=== PATIENT | male | born 1980 | race Caucasian/White ===

== ENCOUNTER 2018-09-08 21:33 | Inpatient (IN) | payer OTHER ==
[2018-09-08] MEDS: IBUPROFEN 600 MG TAB PO (22:51)
[2018-09-08] MEDS: LORAZEPAM 2 MG INJ IV (22:51)
[2018-09-09] MEDS ORDERED: NACL 0.9% 3 ML SYG IV (01:00)
[2018-09-09] MEDS ORDERED: ALBUTEROL/IPRATROPIUM (NEB) 3 ML AMP HHN (01:00)
[2018-09-09] MEDS ORDERED: LORAZEPAM 2 MG INJ IV (01:00)
[2018-09-09] MEDS: SOD CHLORIDE 0.9% 1,000 ML IV ×3 (02:00→23:26)
[2018-09-09] MEDS: LORAZEPAM 2 MG INJ IV ×7 (03:19→22:40)
[2018-09-09 07:02] LABS: ADD MAN DIFF? NO
[2018-09-09 07:09] LABS: WHITE BLOOD COUNT 4.5 10^3/ul (4.8-10.8)
[2018-09-09 07:09] LABS: ABNORMAL IP MESSAGE 1; BASOPHILS % 0.9 % (0.0-2.0); EOSINOPHILS # 0.1 10^3/ul (0.0-0.5); HEMATOCRIT 30.4 % (42.0-52.0); HEMOGLOBIN 10.6 g/dl (14.0-18.0); LYMPHOCYTES # 1.6 10^3/ul (0.8-2.9); LYMPHOCYTES % 34.1 % (15.0-51.0); MEAN CORPUSCULAR HEMOGLOBIN 34.8 pg (29.0-33.0); MEAN CORPUSCULAR HGB CONC 34.9 g/dl (32.0-37.0); MEAN CORPUSCULAR VOLUME 99.7 fl (82.0-101.0); MEAN PLATELET VOLUME 10.4 fl (7.4-10.4); MONOCYTE # 0.5 10^3/ul (0.3-0.9); MONOCYTES % 11.9 % (0.0-11.0); NEUTROPHIL # 2.3 10^3/ul (1.6-7.5); NEUTROPHILS % 50.7 % (39.0-77.0); PLATELET COUNT 53 10^3/UL (140-415); POSITIVE DIFF @See below; RED BLOOD COUNT 3.05 10^6/ul (4.70-6.10); RED CELL DISTRIBUTION WIDTH 14.5 % (11.5-14.5)
[2018-09-09 07:27] LABS: ALANINE AMINOTRANSFERASE 72 IU/L (13-69); ALBUMIN 3.5 g/dl (3.3-4.9); ALBUMIN/GLOBULIN RATIO 1.16; ALKALINE PHOSPHATASE 69 IU/L (42-121); ANION GAP 11 (5-13); ASPARTATE AMINO TRANSFERASE 132 IU/L (15-46); BILIRUBIN,INDIRECT 0.8 mg/dl (0-1.1); BILIRUBIN,TOTAL 0.8 mg/dl (0.2-1.3); BLOOD UREA NITROGEN 14 mg/dl (7-20); CALCIUM 8.9 mg/dl (8.4-10.2); CARBON DIOXIDE 27 mmol/L (21-31); CHLORIDE 100 mmol/L (97-110); CHOL/HDL RATIO 1.9 RATIO; CHOLESTEROL 190 mg/dl (100-200); CREATININE 0.52 mg/dl (0.61-1.24); Estimated GFR > 60 mL/min (>60); GLUCOSE 101 mg/dl (70-220); HDL CHOLESTEROL 97 mg/dl (27-67); LDL CHOLESTEROL,CALCULATED 85 mg/dl; POTASSIUM 3.8 mmol/L (3.5-5.1); SODIUM 138 mmol/L (135-144); TOTAL PROTEIN 6.5 g/dl (6.1-8.1); TRIGLYCERIDES 42 mg/dl (0-149)
[2018-09-09] MEDS: MULTIVITAMINS 10 ML, THIAMINE 100 MG, FOLIC ACID 1 MG in SOD CHLORIDE 0.9% 1,000 ML IVPB (08:55)
[2018-09-09] MEDS: CHLORDIAZEPOXIDE 25 MG CAP PO ×3 (08:55→20:32)
[2018-09-09] MEDS: ENOXAPARIN 40 MG/0.4 ML SYG SC (08:56)
[2018-09-09] MEDS: ACETAMINOPHEN 325 MG TAB PO (20:31)
[2018-09-09] MEDS ORDERED: traMADol 50 MG TAB PO (21:30)
[2018-09-10] MEDS: LORAZEPAM 2 MG INJ IV ×5 (01:45→22:37)
[2018-09-10 06:22] LABS: ADD MAN DIFF? NO
[2018-09-10 06:28] LABS: ABNORMAL IP MESSAGE 1; BASOPHILS % 0.6 % (0.0-2.0); EOSINOPHILS # 0.2 10^3/ul (0.0-0.5); EOSINOPHILS % 4.7 % (0.0-7.0); HEMATOCRIT 33.3 % (42.0-52.0); HEMOGLOBIN 11.5 g/dl (14.0-18.0); LYMPHOCYTES # 1.2 10^3/ul (0.8-2.9); LYMPHOCYTES % 36.5 % (15.0-51.0); MEAN CORPUSCULAR HEMOGLOBIN 34.8 pg (29.0-33.0); MEAN CORPUSCULAR HGB CONC 34.5 g/dl (32.0-37.0); MEAN CORPUSCULAR VOLUME 100.9 fl (82.0-101.0); MEAN PLATELET VOLUME 10.8 fl (7.4-10.4); MONOCYTE # 0.4 10^3/ul (0.3-0.9); MONOCYTES % 10.9 % (0.0-11.0); NEUTROPHIL # 1.6 10^3/ul (1.6-7.5); PLATELET COUNT 45 10^3/UL (140-415); POSITIVE DIFF @See below; RED CELL DISTRIBUTION WIDTH 13.6 % (11.5-14.5)
[2018-09-10 06:28] LABS: WHITE BLOOD COUNT 3.4 10^3/ul (4.8-10.8)
[2018-09-10 06:55] LABS: ANION GAP 7 (5-13); BLOOD UREA NITROGEN 9 mg/dl (7-20); CARBON DIOXIDE 29 mmol/L (21-31); CHLORIDE 105 mmol/L (97-110); CREATININE 0.56 mg/dl (0.61-1.24); Estimated GFR > 60 mL/min (>60); GLUCOSE 104 mg/dl (70-220); MAGNESIUM 1.4 mg/dl (1.7-2.5); PHOSPHORUS 4.6 mg/dl (2.5-4.9); POTASSIUM 4.3 mmol/L (3.5-5.1); SODIUM 141 mmol/L (135-144)
[2018-09-10] MEDS: CHLORDIAZEPOXIDE 25 MG CAP PO ×3 (09:06→20:42)
[2018-09-10] MEDS: MULTIVITAMINS 10 ML, THIAMINE 100 MG, FOLIC ACID 1 MG in SOD CHLORIDE 0.9% 1,000 ML IVPB (09:06)
[2018-09-10] MEDS: ENOXAPARIN 40 MG/0.4 ML SYG SC (09:10)
[2018-09-10] MEDS: MAGNESIUM SULFATE 2 GM/50 ML 50 ML IVPB (15:59)
[2018-09-10] MEDS: SOD CHLORIDE 0.9% 1,000 ML IV ×2 (19:26→22:46)
[2018-09-11] MEDS: LORAZEPAM 2 MG INJ IV ×4 (01:37→15:13)
[2018-09-11 06:43] LABS: WHITE BLOOD COUNT 3.7 10^3/ul (4.8-10.8)
[2018-09-11 06:43] LABS: ABNORMAL IP MESSAGE 1; BASOPHILS % 0.8 % (0.0-2.0); EOSINOPHILS # 0.2 10^3/ul (0.0-0.5); EOSINOPHILS % 5.3 % (0.0-7.0); HEMATOCRIT 31.6 % (42.0-52.0); HEMOGLOBIN 10.6 g/dl (14.0-18.0); LYMPHOCYTES # 1.5 10^3/ul (0.8-2.9); LYMPHOCYTES % 39.6 % (15.0-51.0); MEAN CORPUSCULAR HEMOGLOBIN 34.8 pg (29.0-33.0); MEAN CORPUSCULAR HGB CONC 33.5 g/dl (32.0-37.0); MEAN CORPUSCULAR VOLUME 103.6 fl (82.0-101.0); MEAN PLATELET VOLUME 11.4 fl (7.4-10.4); MONOCYTE # 0.5 10^3/ul (0.3-0.9); MONOCYTES % 12.8 % (0.0-11.0); NEUTROPHIL # 1.5 10^3/ul (1.6-7.5); PLATELET COUNT 48 10^3/UL (140-415); POSITIVE DIFF @See below; RED BLOOD COUNT 3.05 10^6/ul (4.70-6.10); RED CELL DISTRIBUTION WIDTH 13.7 % (11.5-14.5)
[2018-09-11 06:44] LABS: ADD MAN DIFF? NO
[2018-09-11 06:56] LABS: MAGNESIUM 1.7 mg/dl (1.7-2.5)
[2018-09-11 07:07] LABS: ALANINE AMINOTRANSFERASE 61 IU/L (13-69); ALBUMIN 3.3 g/dl (3.3-4.9); ALBUMIN/GLOBULIN RATIO 1.17; ALKALINE PHOSPHATASE 72 IU/L (42-121); ANION GAP 7 (5-13); ASPARTATE AMINO TRANSFERASE 81 IU/L (15-46); BILIRUBIN,INDIRECT 0.5 mg/dl (0-1.1); BILIRUBIN,TOTAL 0.5 mg/dl (0.2-1.3); BLOOD UREA NITROGEN 11 mg/dl (7-20); CALCIUM 8.6 mg/dl (8.4-10.2); CARBON DIOXIDE 25 mmol/L (21-31); CHLORIDE 111 mmol/L (97-110); CREATININE 0.47 mg/dl (0.61-1.24); Estimated GFR > 60 mL/min (>60); GLUCOSE 95 mg/dl (70-220); POTASSIUM 3.5 mmol/L (3.5-5.1); SODIUM 143 mmol/L (135-144); TOTAL PROTEIN 6.1 g/dl (6.1-8.1)
[2018-09-11] MEDS: CHLORDIAZEPOXIDE 25 MG CAP PO ×3 (08:15→21:00)
[2018-09-11] MEDS: ENOXAPARIN 40 MG/0.4 ML SYG SC (08:18)
[2018-09-11] MEDS: MULTIVITAMINS 10 ML, THIAMINE 100 MG, FOLIC ACID 1 MG in SOD CHLORIDE 0.9% 1,000 ML IVPB (08:19)
[2018-09-11] MEDS ORDERED: CHLORDIAZEPOXIDE 25 MG CAP PO (21:00)
[2018-09-11] MEDS: SOD CHLORIDE 0.9% 1,000 ML IV (21:00)
[2018-09-12 06:19] LABS: ANION GAP 5 (5-13); BLOOD UREA NITROGEN 14 mg/dl (7-20); CALCIUM 8.6 mg/dl (8.4-10.2); CARBON DIOXIDE 26 mmol/L (21-31); CHLORIDE 108 mmol/L (97-110); CREATININE 0.51 mg/dl (0.61-1.24); Estimated GFR > 60 mL/min (>60); GLUCOSE 101 mg/dl (70-220); POTASSIUM 3.7 mmol/L (3.5-5.1); SODIUM 139 mmol/L (135-144)
[2018-09-12] MEDS: CHLORDIAZEPOXIDE 25 MG CAP PO ×2 (08:31→13:37)
[2018-09-12] MEDS: ENOXAPARIN 40 MG/0.4 ML SYG SC (08:35)
[2018-09-12] MEDS: SOD CHLORIDE 0.9% 1,000 ML IV (11:26)
[2018-09-12] MEDS: MULTIVITAMINS 10 ML, THIAMINE 100 MG, FOLIC ACID 1 MG in SOD CHLORIDE 0.9% 1,000 ML IVPB (11:35)
== END 2018-09-12 14:30 | disposition home or self-care (01) | DRG 897 ==
LOC: 2NE 09-11 14:56 → TEL 21:33
DX: F10.239 Alcohol dependence with withdrawal, unspecified (principal); F10.229 Alcohol dependence with intoxication, unspecified; I48.91 Unspecified atrial fibrillation; D64.9 Anemia, unspecified; E83.42 Hypomagnesemia
CPT/HCPCS: 80048; 80053; 80061; 83735; 84100; 84443; 85025; 97116; 97161

== ENCOUNTER 2018-09-19 16:31 | Inpatient (IN) | payer OTHER ==
[2018-09-19] MEDS ORDERED: NACL 0.9% 3 ML SYG IV (17:30)
[2018-09-19 18:04] LABS: ADD MAN DIFF? NO
[2018-09-19 18:06] LABS: BASOPHIL # 0.1 10^3/ul (0.0-0.1); BASOPHILS % 2.7 % (0.0-2.0); EOSINOPHILS # 0.1 10^3/ul (0.0-0.5); LYMPHOCYTES # 1.4 10^3/ul (0.8-2.9); LYMPHOCYTES % 31.2 % (15.0-51.0); MEAN CORPUSCULAR HEMOGLOBIN 34.9 pg (29.0-33.0); MEAN CORPUSCULAR HGB CONC 33.3 g/dl (32.0-37.0); MEAN CORPUSCULAR VOLUME 104.8 fl (82.0-101.0); MONOCYTE # 0.8 10^3/ul (0.3-0.9); MONOCYTES % 18.2 % (0.0-11.0); NEUTROPHILS % 45.2 % (39.0-77.0); PLATELET COUNT 355 10^3/UL (140-415); RED BLOOD COUNT 3.15 10^6/ul (4.70-6.10); RED CELL DISTRIBUTION WIDTH 14.5 % (11.5-14.5)
[2018-09-19 18:06] LABS: WHITE BLOOD COUNT 4.5 10^3/ul (4.8-10.8)
[2018-09-19] MEDS: CHLORDIAZEPOXIDE 25 MG CAP PO (18:08)
[2018-09-19 18:36] LABS: ALANINE AMINOTRANSFERASE 62 IU/L (13-69); ALBUMIN 3.8 g/dl (3.3-4.9); ALBUMIN/GLOBULIN RATIO 1.31; ALKALINE PHOSPHATASE 65 IU/L (42-121); ANION GAP 7 (5-13); ASPARTATE AMINO TRANSFERASE 60 IU/L (15-46); BILIRUBIN,INDIRECT 0.4 mg/dl (0-1.1); BILIRUBIN,TOTAL 0.4 mg/dl (0.2-1.3); BLOOD UREA NITROGEN 8 mg/dl (7-20); CALCIUM 8.8 mg/dl (8.4-10.2); CARBON DIOXIDE 26 mmol/L (21-31); CHLORIDE 108 mmol/L (97-110); CREATININE 0.56 mg/dl (0.61-1.24); Estimated GFR > 60 mL/min (>60); GLUCOSE 100 mg/dl (70-220); POTASSIUM 4.1 mmol/L (3.5-5.1); SODIUM 141 mmol/L (135-144); TOTAL PROTEIN 6.7 g/dl (6.1-8.1)
[2018-09-19] MEDS: DIAZEPAM 5 MG/ML SYG IV (19:48)
[2018-09-20] MEDS: CHLORDIAZEPOXIDE 25 MG CAP PO ×6 (02:02→23:04)
[2018-09-20 08:27] LABS: ADD MAN DIFF? NO
[2018-09-20 08:28] LABS: WHITE BLOOD COUNT 4.8 10^3/ul (4.8-10.8)
[2018-09-20 08:28] LABS: BASOPHIL # 0.1 10^3/ul (0.0-0.1); BASOPHILS % 2.3 % (0.0-2.0); EOSINOPHILS # 0.1 10^3/ul (0.0-0.5); EOSINOPHILS % 2.7 % (0.0-7.0); HEMATOCRIT 35.3 % (42.0-52.0); HEMOGLOBIN 11.5 g/dl (14.0-18.0); LYMPHOCYTES # 1.5 10^3/ul (0.8-2.9); LYMPHOCYTES % 32.2 % (15.0-51.0); MEAN CORPUSCULAR HEMOGLOBIN 34.6 pg (29.0-33.0); MEAN CORPUSCULAR HGB CONC 32.6 g/dl (32.0-37.0); MEAN CORPUSCULAR VOLUME 106.3 fl (82.0-101.0); MEAN PLATELET VOLUME 9.2 fl (7.4-10.4); MONOCYTE # 0.8 10^3/ul (0.3-0.9); MONOCYTES % 16.6 % (0.0-11.0); NEUTROPHIL # 2.2 10^3/ul (1.6-7.5); NEUTROPHILS % 45.6 % (39.0-77.0); PLATELET COUNT 350 10^3/UL (140-415); RED BLOOD COUNT 3.32 10^6/ul (4.70-6.10); RED CELL DISTRIBUTION WIDTH 14.3 % (11.5-14.5)
[2018-09-20 08:47] LABS: HEMOGLOBIN A1C 4.9 % (0-5.9)
[2018-09-20 08:49] LABS: ALANINE AMINOTRANSFERASE 52 IU/L (13-69); ALKALINE PHOSPHATASE 54 IU/L (42-121); ANION GAP 8 (5-13); ASPARTATE AMINO TRANSFERASE 46 IU/L (15-46); BILIRUBIN,INDIRECT 0.7 mg/dl (0-1.1); BILIRUBIN,TOTAL 0.7 mg/dl (0.2-1.3); BLOOD UREA NITROGEN 12 mg/dl (7-20); CARBON DIOXIDE 30 mmol/L (21-31); CHLORIDE 106 mmol/L (97-110); CREATININE 0.57 mg/dl (0.61-1.24); Estimated GFR > 60 mL/min (>60); GLUCOSE 97 mg/dl (70-220); SODIUM 144 mmol/L (135-144)
[2018-09-20 08:50] LABS: ALBUMIN 3.7 g/dl (3.3-4.9); ALBUMIN/GLOBULIN RATIO 1.27; TOTAL PROTEIN 6.6 g/dl (6.1-8.1)
[2018-09-20] MEDS: FOLIC ACID 1 MG TAB PO (10:36)
[2018-09-20] MEDS ORDERED: CITALOPRAM 20 MG TAB NGT (11:00)
[2018-09-20] MEDS: ARIPIPRAZOLE 2 MG TAB PO (11:08)
[2018-09-20] MEDS: THIAMINE 100 MG TAB PO ×2 (13:07→20:43)
[2018-09-20] MEDS: HYDROCODONE/APAP (5/325) TAB PO (15:30)
[2018-09-21] MEDS: THIAMINE 100 MG TAB PO ×2 (08:24→12:12)
[2018-09-21] MEDS: CHLORDIAZEPOXIDE 25 MG CAP PO ×2 (08:24→12:12)
[2018-09-21] MEDS: FOLIC ACID 1 MG TAB PO (08:24)
[2018-09-21] MEDS: CITALOPRAM 10 MG TAB NGT (08:24)
[2018-09-21] MEDS: ARIPIPRAZOLE 2 MG TAB PO (08:24)
[2018-09-21] MEDS: HYDROCODONE/APAP (5/325) TAB PO (08:27)
== END 2018-09-21 13:40 | disposition home or self-care (01) | DRG 897 ==
LOC: 5EC 16:31
DX: F10.239 Alcohol dependence with withdrawal, unspecified (principal); F32.3 Major depressive disorder, single episode, severe with psychotic features; Z72.0 Tobacco use
CPT/HCPCS: 80053; 83036; 85025

== ENCOUNTER 2018-09-27 13:11 | Emergency (ER) | payer SELFPAY, OTHER | END 2018-09-27 15:55 | disposition left against medical advice (07) | LOC: FTE 15:55 | DX: Z53.21 Procedure and treatment not carried out due to patient leaving prior to being seen by health care provider (principal) ==

== ENCOUNTER 2018-11-08 01:16 | Emergency (ER) | payer OTHER ==
[2018-11-08] MEDS: LORAZEPAM 2 MG INJ IV (07:13)
== END 2018-11-08 10:16 | disposition home or self-care (01) ==
LOC: E/R 01:16
DX: F10.239 Alcohol dependence with withdrawal, unspecified (principal); Z59.0 Homelessness; Z85.47 Personal history of malignant neoplasm of testis; Z87.891 Personal history of nicotine dependence
CPT/HCPCS: 96374; 99284-25